=== PATIENT | female | born 1970 | race Caucasian/White ===

== ENCOUNTER 2018-03-31 15:08 | Observation (INO) ==
[2018-03-31] MEDS ORDERED: *HR* FentaNYL (PF) 100 MCG/2 ML VIAL IVP ONE ×3 (15:31→22:25)
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
[2018-03-31 16:13] LABS: Basophils % 0.2 %; Eosinophils # 0.3 K/mcL (0.0-0.6); Eosinophils % 3.4 %; Hematocrit 39.2 % (35.3-44.9); Hemoglobin 12.1 g/dL (11.5-15.4); Immature Granulocytes % 0.2 % (0-4); Lymphocytes # 1.5 K/mcL (0.6-4.6); Lymphocytes % 16.4 %; Mean Corpuscular HGB Conc 30.9 g/dL (31.6-35.5); Mean Corpuscular Hemoglobin 27.9 pg (28.0-33.3); Mean Corpuscular Volume 90.5 fL (83.0-100.0); Mean Platelet Volume 9.5 fL (9.4-12.4); Monocytes # 0.5 K/mcL (0.0-1.3); Monocytes % 5.3 %; Neutrophils # 6.8 K/mcL (1.6-8.9); Platelet Count 207 K/mcL (140-400); Red Blood Count 4.33 M/mcL (3.82-4.97); Segmented Neutrophils % 74.5 %
[2018-03-31 17:11] LABS: Acetaminophen < 10 mcg/mL (10-20); BUN/Creatinine Ratio 20 (6-26); Blood Urea Nitrogen 24 mg/dL (6-20); Calcium 8.6 mg/dL (8.6-10.3); Carbon Dioxide 19 mEq/L (23-29); Chloride 105 mEq/L (98-107); Ethanol < 10 mg/dL (Less than 10); Glucose 401 mg/dL (70-105); Osmolality,Calculated 295 (280-300); Potassium 4.7 mEq/L (3.5-5.1); Salicylate < 2.5 mg/dL (15.0-30.0); Sodium 132 mEq/L (136-145); eGFR For African Americans 59 (> 60); eGFR For Non-African Americans 49 (> 60)
[2018-03-31] MEDS ORDERED: Azithromycin 250 MG TABLET PO ONE (18:06)
[2018-03-31] MEDS ORDERED: cefTRIAXone 250 MG VIAL IM ONE (18:06)
[2018-03-31] MEDS ORDERED: metroNIDAZOLE 500 MG TABLET PO ONE (18:06)
[2018-03-31] MEDS ORDERED: Ondansetron 4 MG/2 ML VIAL IVP ONE (18:06)
[2018-03-31 18:50] LABS: Bilirubin,Urine Negative (Negative); Blood,Urine Small (Negative); Clarity,Urine Cloudy (Clear); Color,Urine Yellow (Yellow); Glucose,Urine (UA) >=1000 mg/dL (Normal); Ketones,Urine Negative (Negative); Leukocyte Esterase,Urine Moderate (Negative); Nitrite,Urine Negative (Negative); PH,Urine 5.5 pH Units (5.0-8.0); Protein,Urine Negative (Neg-Trace); Specific Gravity,Urine 1.027 (1.010-1.025); Urobilinogen,Urine Normal (Normal)
[2018-03-31 18:53] LABS: Bacteria,Urine Few per hpf (None-Few); Hyaline Casts,Urine None Seen per lpf (None-Few); Squamous Epithelial Cell,Urine Many per lpf (None-Few); WBC,Urine TNTC per hpf (0-3)
[2018-03-31] MEDS ORDERED: cephALEXin 250 MG CAPSULE PO ONE (19:10)
[2018-03-31 19:17] LABS: Amphetamine Screen,Urine Negative ng/mL (Cutoff=1000); Barbiturate Screen,Urine Negative ng/mL (Cutoff=200); Benzodiazepines Screen,Urine Positive ng/mL (Cutoff=200); Cannabinoid Screen,Urine Negative ng/mL (Cutoff = 50); Cocaine Screen,Urine Negative ng/mL (Cutoff= 300); Opiate Screen,Urine Positive ng/mL (Cutoff=300); Phencyclidine Screen,Urine Negative ng/mL (Cutoff=25)
[2018-03-31] MEDS ORDERED: Isovue-370 500 ML INFUS..BTL IV ONE (19:41)
[2018-03-31] MEDS ORDERED: Naloxone 0.4 MG/ML INJ IVP PRN (23:19)
[2018-03-31] MEDS ORDERED: Dextrose Gel 15 GM/37.5 ML TUBE PO PRN ×2 (23:20)
[2018-03-31] MEDS ORDERED: *HR* Dextrose 50 % in Water (Syg) 50 ML SYRINGE IVP PRN (23:20)
[2018-03-31] MEDS ORDERED: D5% in Water 1,000 ML IVC PRN (23:20)
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
[2018-04-01] MEDS: OXYCODONE Oral CONC 10 MG/0.5 ML ORAL.SYG SL PRN ×5 (01:14→20:56)
[2018-04-01] MEDS: 0.9 % Sodium Chloride 1,000 ML IVC SCH ×2 (01:14→21:23)
[2018-04-01] MEDS: Insulin LISPRO 300 UNITS/3 ML VIAL SQ SCH ×4 (01:52→14:07)
[2018-04-01 07:29] LABS: BUN/Creatinine Ratio 21 (6-26); Blood Urea Nitrogen 23 mg/dL (6-20); Calcium 9.4 mg/dL (8.6-10.3); Carbon Dioxide 21 mEq/L (23-29); Chloride 104 mEq/L (98-107); Glucose 155 mg/dL (70-105); Osmolality,Calculated 287 (280-300); Potassium 3.8 mEq/L (3.5-5.1); Sodium 135 mEq/L (136-145); eGFR For African Americans > 60 (> 60); eGFR For Non-African Americans 52 (> 60)
[2018-04-01 07:47] LABS: Basophils % 0.4 %; Eosinophils # 0.4 K/mcL (0.0-0.6); Eosinophils % 5.5 %; Hematocrit 33.3 % (35.3-44.9); Hemoglobin 10.8 g/dL (11.5-15.4); Immature Granulocytes % 0.4 % (0-4); Lymphocytes # 2.2 K/mcL (0.6-4.6); Mean Corpuscular HGB Conc 32.4 g/dL (31.6-35.5); Mean Corpuscular Hemoglobin 28.4 pg (28.0-33.3); Mean Corpuscular Volume 87.6 fL (83.0-100.0); Mean Platelet Volume 9.2 fL (9.4-12.4); Monocytes # 0.4 K/mcL (0.0-1.3); Monocytes % 5.5 %; Neutrophils # 4.6 K/mcL (1.6-8.9); Platelet Count 245 K/mcL (140-400); Red Cell Distribution Width 13.9 % (11.5-14.5); Segmented Neutrophils % 60.2 %
[2018-04-01 08:25] LABS: Estimated Average Glucose 321 mg/dl; Hemoglobin A1C 12.8 %
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
[2018-04-01] MEDS: ALPRAZolam 1 MG TABLET PO SCH ×3 (10:14→20:55)
[2018-04-01] MEDS: cefTRIAXone 1,000 MG in Water for inj. (sterile) 20 ML 10 ML IVP SCH (10:14)
[2018-04-01] MEDS: Ketorolac 15 MG/ML VIAL IVP PRN ×2 (14:04→23:22)
[2018-04-01] MEDS ORDERED: Insulin LISPRO 300 UNITS/3 ML VIAL SQ SCH ×2 (18:00→23:00)
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
[2018-04-01] MEDS: Gabapentin 400 MG CAPSULE PO SCH (20:55)
[2018-04-01] MEDS: Insulin DETEMIR 100 UNIT/ML X5UNITS SQ SCH (23:30)
[2018-04-02] MEDS: OXYCODONE Oral CONC 10 MG/0.5 ML ORAL.SYG SL PRN ×5 (02:07→21:53)
[2018-04-02] MEDS: Insulin LISPRO 300 UNITS/3 ML VIAL SQ SCH ×5 (04:00→23:11)
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
[2018-04-02] MEDS ORDERED: Insulin LISPRO 300 UNITS/3 ML VIAL SQ SCH (07:30)
[2018-04-02] MEDS: ALPRAZolam 1 MG TABLET PO SCH ×3 (08:10→21:52)
[2018-04-02] MEDS: cefTRIAXone 1,000 MG in Water for inj. (sterile) 20 ML 10 ML IVP SCH (08:10)
[2018-04-02] MEDS: Gabapentin 400 MG CAPSULE PO SCH ×3 (08:10→21:52)
--- NOTE | 2018-04-02 11:20 | Event Note ---
Date of Encounter: 04/02/18 Time of Encounter: 11:19 Contrast noted in large colon on repeat AAS. Noted regular diet per primary team. No acute surgical intervention indicated. Surgery will sign off at this time. Thank you for allowing us to participate Ms. Ndiaye krysta. Please reconsult for further questions or needs.
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
[2018-04-02] MEDS: Insulin DETEMIR 100 UNIT/ML X5UNITS SQ SCH (21:52)
[2018-04-03] MEDS: OXYCODONE Oral CONC 10 MG/0.5 ML ORAL.SYG SL PRN ×3 (03:39→19:28)
[2018-04-03 03:52] LABS: Hemoglobin 8.5 g/dL (11.5-15.4); Mean Corpuscular HGB Conc 32.7 g/dL (31.6-35.5); Mean Corpuscular Hemoglobin 28.5 pg (28.0-33.3); Mean Corpuscular Volume 87.2 fL (83.0-100.0); Platelet Count 195 K/mcL (140-400); Red Blood Count 2.98 M/mcL (3.82-4.97); Red Cell Distribution Width 13.6 % (11.5-14.5)
[2018-04-03 04:12] LABS: BUN/Creatinine Ratio 16 (6-26); Blood Urea Nitrogen 16 mg/dL (6-20); Calcium 8.6 mg/dL (8.6-10.3); Carbon Dioxide 24 mEq/L (23-29); Chloride 105 mEq/L (98-107); Glucose 258 mg/dL (70-105); Magnesium 1.7 mg/dL (1.6-2.6); Osmolality,Calculated 294 (280-300); Sodium 137 mEq/L (136-145); eGFR For African Americans > 60 (> 60); eGFR For Non-African Americans > 60 (> 60)
[2018-04-03] MEDS: Insulin LISPRO 300 UNITS/3 ML VIAL SQ SCH ×4 (08:03→20:46)
[2018-04-03] MEDS: ALPRAZolam 1 MG TABLET PO SCH ×3 (08:03→20:46)
[2018-04-03] MEDS: Gabapentin 400 MG CAPSULE PO SCH ×3 (08:04→20:46)
[2018-04-03] MEDS ORDERED: traMADol 50 MG TABLET PO PRN (08:46)
[2018-04-03] MEDS ORDERED: Sennosides 8.6 MG TABLET PO PRN (08:49)
[2018-04-03] MEDS ORDERED: OXYCODONE Oral CONC 10 MG/0.5 ML ORAL.SYG SL ONE (13:30)
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
[2018-04-03] MEDS ORDERED: Insulin DETEMIR 100 UNIT/ML X5UNITS SQ SCH (21:00)
[2018-04-03] MEDS ORDERED: *HR* FentaNYL (PF) 100 MCG/2 ML VIAL IVP ONE (22:39)
[2018-04-04 04:12] LABS: Hematocrit 25.8 % (35.3-44.9); Hemoglobin 8.6 g/dL (11.5-15.4)
[2018-04-04] MEDS: OXYCODONE Oral CONC 10 MG/0.5 ML ORAL.SYG SL PRN (06:41)
[2018-04-04] MEDS: Gabapentin 400 MG CAPSULE PO SCH ×2 (08:47→13:56)
[2018-04-04] MEDS: ALPRAZolam 1 MG TABLET PO SCH ×2 (08:48→13:56)
[2018-04-04] MEDS: Insulin LISPRO 300 UNITS/3 ML VIAL SQ SCH ×2 (08:49→11:41)
[2018-04-04] MEDS ORDERED: Lisinopril 20 MG TABLET PO SCH (09:00)
[2018-04-04] MEDS ORDERED: *HR* FentaNYL (PF) 100 MCG/2 ML VIAL IVP ONE ×2 (10:35→15:10)
[2018-04-04] MEDS ORDERED: Ondansetron 4 MG/2 ML VIAL IVP PRN (10:35)
[2018-04-04 14:14] VITALS: BP 169/101
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
== END 2018-04-04 17:29 | disposition home or self-care (01) ==
LOC: EMEROO 15:08 → 3ANU 15:08 → SUATTDRO 23:41 → 3ANU 04-01 00:22
PROVIDERS: ADMIT Internal Medicine; ATTEND Internal Medicine

== ENCOUNTER 2018-04-30 14:01 | Inpatient (IN) ==
[2018-04-30] MEDS ORDERED: Ipratropium/Albuterol Neb 3 ML IH ONE (14:04)
[2018-04-30] MEDS ORDERED: 0.9 % Sodium Chloride 1,000 ML IVC ONE (14:22)
--- NOTE | 2018-04-30 14:33 | Emergency Department Note ---
Disposition Clinical Impression: Numbness and tingling of left side of face Syncope Qualifiers: Syncope type: unspecified Qualified Code(s): R55 - Syncope and collapse Headache Qualifiers: Headache type: unspecified Headache chronicity pattern: unspecified pattern Intractability: not intractable Qualified Code(s): R51 - Headache Disposition: Admitted As Inpatient General Adult HPI - General Stated complaint: syncope Time Seen by Provider: 04/30/18 14:04 Source: patient, EMS Mode of arrival: EMS Limitations: no limitations Nursing Notes Reviewed: Yes Vital Signs Reviewed: Yes - History of Present Illness HPI Narrative: Patient presents via EMS for multiple episodes of syncope. She has had approximately 7 episodes of syncope since midnight. Patient had concern for questionable arousal via EMS. They state that she did start to wake up with ammonia capsule. She awoken for me to voice. She states that she has been having these symptoms along with associated left-sided headache. The patient does not have any neuro deficits on my evaluation. She states that she was here and they were unable to find out what was going on. They have not looked into seizure type episode in the past. At this point her symptoms do not sound seizure-like that she has not had any tongue biting or loss of urinary continence. The patient had reported had some jerking of her extremities as well as her eyes. Patient will undergo head CT as well as further cardiac workup for evaluation of possible etiology. - Related Data Home Medications Medication Instructions Recorded Confirmed Gabapentin [Neurontin] 800 mg PO TID 09/25/16 04/09/18 Insulin LISPRO [HumaLOG] 0 units SQ TIDAC PRN 09/25/16 04/09/18 Insulin Glargine [Lantus] 35 unit SQ QAM 02/20/18 04/09/18 Lisinopril [Zestril] 10 mg PO DAILY 02/20/18 04/09/18 ALPRAZolam [Xanax 1 MG Tablet] 1 mg PO TID PRN 03/30/18 04/09/18 Omeprazole [PriLOSEC] 20 mg PO BIDAC 03/30/18 04/09/18 Promethazine [Phenergan] 25 mg PO Q6HR PRN 03/30/18 04/09/18 Pravastatin Sodium [Pravachol] 10 mg PO HS 04/01/18 04/09/18 Bethanechol [Urecholine] 25 mg PO QID 04/09/18 04/09/18 Previous Rx's Medication Instructions Recorded Ondansetron Oral Soln [Zofran Oral 2 mg PO Q6HR PRN 10 Days #40 04/04/18 Soln] solution OxyCODONE Immed Rel [Roxicodone 5 5 mg PO Q4HR PRN 5 Days #20 tablet 04/04/18 MG] Allergies Allergy/AdvReac Type Severity Reaction Status Date / Time butorphanol [From Stadol] Allergy Difficulty Verified 03/30/18 20:55 Breathing diflunisal [From Dolobid] Allergy Itching Verified 03/30/18 20:55 nalbuphine [From Nubain] Allergy Difficulty Verified 03/30/18 20:55 Breathing Sulfa (Sulfonamide Allergy Rash Verified 03/30/18 20:55 Antibiotics) Review of Systems: CONSTITUTIONAL: No weight loss, fever, chills, weakness or fatigue. HEENT: Eyes: Eye pain which she associates with the headache and describes as behind the eye and sharp. Ears, Nose, Throat: No hearing loss, difficulty talking or unable to swallow. SKIN: No rash or itching. CARDIOVASCULAR: No chest pain, chest pressure or chest discomfort. No palpitations or edema. RESPIRATORY: No shortness of breath, cough or sputum. GASTROINTESTINAL: No anorexia, nausea, vomiting or diarrhea. No abdominal pain or blood. GENITOURINARY: No burning on urination or hematuria. NEUROLOGICAL: Headache and syncope No dizziness, paralysis, ataxia, numbness or tingling in the extremities. No change in bowel or bladder control. MUSCULOSKELETAL: Back pain described as chronic Past Medical History - Past Medical History Medical history: Reports: arthritis, diabetes, GERD, kidney stones, osteoporosis , peripheral artery disease, TIA, other Surgical history: Reports: appendectomy, cholecystectomy, hysterectomy, orthopedic, other Psychiatric history: Reports: PTSD SAUSAGE MEAT TRIMMER history: Reports: no SAUSAGE MEAT TRIMMER history - Social History Smoking Status: Never smoker Smokeless Tobacco Status: No Alcohol use: Reports: none Drug use: Reports: none Physical Exam General: Well appearing, nontoxic, no acute distress Head: Normocephalic Atraumatic Eyes: PERRL, EOMI ENT: Airway patent, no stridor Neck: supple, no meningismus Chest: Lungs clear to auscultation bilateral Cardiac: Regular rate and rhythm, no murmurs, rubs or gallops Abdomen: soft, nontender, nondistended; no guarding, rebound, or tenderness to percussion Musculoskeletal: Calves symmetric, nontender, no palpable cord Skin: No rash, normal skin tone Neuro: Alert and Oriented to person, place, and time; No focal deficit, Course - Reevaluation(s) Reevaluation #1: D-dimer slightly elevated. Patient will undergo CTA of chest. Patient was reevaluated and is complaining of worsening left-sided headache. She states the pain is behind her eye. Complaining of pain worsening with pressure. Intraocular pressures were performed and were 16 in both eyes. The patient will have an ESR added to her blood work to further evaluate for possible temporal arteritis as her headache is left-sided as tenderness to touch in the temporal area. The patient's will be given a migraine cocktail as her head CT is negative. On reevaluation of the patient's neuro exam she does have some left-sided facial numbness to the lower face. Does not involve the upper face. There is no other cranial nerve involvement. She describes it as a numbness and not a hypersensitivity Tish likely trigeminal neuralgia. Patient was placed on high flow nasal cannula without any improvements in the emergency department. She is asked for multiple narcotic medications including fentanyl by name. At this point her medical records have been evaluated and she was seen for syncope. She signed out AMA. His point she is willing to stay and understands that she needs to stay for complete workup. Patient's back pain is related to right paraspinal lumbar muscles. There is no midline tenderness. There is no tenderness to the pelvis. Likely musculoskeletal related in nature. Vital Signs Temperature 99.5 F 04/30/18 14:28 Pulse Rate 108 04/30/18 14:28 Respiratory Rate 16 04/30/18 14:28 Blood Pressure 160/77 04/30/18 14:28 O2 Sat by Pulse Oximetry 97 04/30/18 14:28 Temperature 99.5 F 04/30/18 14:28 Pulse Rate 108 04/30/18 14:28 Respiratory Rate 16 04/30/18 14:28 Blood Pressure 160/77 04/30/18 14:28 O2 Sat by Pulse Oximetry 97 04/30/18 14:33 Oxygen Delivery Oxygen Delivery Room Air Medical Decision Making - Lab Data Result diagrams: 04/30/18 14:42 04/30/18 14:04 Lab Results 04/30/18 04/30/18 04/30/18 Range/Units 14:04 14:42 14:42 WBC 8.3 (4.3-11.1) K/mcL RBC 3.44 L (3.82-4.97) M/mcL Hgb 9.8 L (11.5-15.4) g/dL Hct 29.4 L (35.3-44.9) % MCV 85.5 (83.0-100.0) fL MCH 28.5 (28.0-33.3) pg MCHC 33.3 (31.6-35.5) g/dL RDW 13.2 (11.5-14.5) % Plt Count 222 (140-400) K/mcL MPV 8.8 L (9.4-12.4) fL Immature Gran % 0.5 (0-4) % Seg Neutrophils % 60.5 % Lymphocytes % 20.7 % Monocytes % 7.0 % Eosinophils % 10.8 % Basophils % 0.5 % Neutrophils # 5.0 (1.6-8.9) K/mcL Lymphocytes # 1.7 (0.6-4.6) K/mcL Monocytes # 0.6 (0.0-1.3) K/mcL Eosinophils # 0.9 H (0.0-0.6) K/mcL Basophils # 0.0 (0.0-0.2) K/mcL ESR (0-15) mm/hr D-Dimer 1392 H (0-500) ng/mLFEU Sodium 128 L (136-145) mEq/L Potassium 4.4 (3.5-5.1) mEq/L Chloride 95 L (98-107) mEq/L Carbon Dioxide 28 (23-29) mEq/L BUN 11 (6-20) mg/dL Creatinine 0.92 (0.60-1.20) mg/dL Est GFR ( Amer) > 60 (> 60) Est GFR (Non-Af Amer) > 60 (> 60) BUN/Creatinine Ratio 12 (6-26) Glucose 189 H (70-105) mg/dL Calculated Osmolality 270 L (280-300) Calcium 9.1 (8.6-10.3) mg/dL Magnesium 1.8 (1.6-2.6) mg/dL Troponin I < 0.03 (< 0.04) ng/mL TSH 0.648 (0.340-5.600) mcIU/mL 04/30/18 Range/Units 14:42 WBC (4.3-11.1) K/mcL RBC (3.82-4.97) M/mcL Hgb (11.5-15.4) g/dL Hct (35.3-44.9) % MCV (83.0-100.0) fL MCH (28.0-33.3) pg MCHC (31.6-35.5) g/dL RDW (11.5-14.5) % Plt Count (140-400) K/mcL MPV (9.4-12.4) fL Immature Gran % (0-4) % Seg Neutrophils % % Lymphocytes % % Monocytes % % Eosinophils % % Basophils % % Neutrophils # (1.6-8.9) K/mcL Lymphocytes # (0.6-4.6) K/mcL Monocytes # (0.0-1.3) K/mcL Eosinophils # (0.0-0.6) K/mcL Basophils # (0.0-0.2) K/mcL ESR 34 H (0-15) mm/hr D-Dimer (0-500) ng/mLFEU Sodium (136-145) mEq/L Potassium (3.5-5.1) mEq/L Chloride (98-107) mEq/L Carbon Dioxide (23-29) mEq/L BUN (6-20) mg/dL Creatinine (0.60-1.20) mg/dL Est GFR ( Amer) (> 60) Est GFR (Non-Af Amer) (> 60) BUN/Creatinine Ratio (6-26) Glucose (70-105) mg/dL Calculated Osmolality (280-300) Calcium (8.6-10.3) mg/dL Magnesium (1.6-2.6) mg/dL Troponin I (< 0.04) ng/mL TSH (0.340-5.600) mcIU/mL
[2018-04-30 15:14] LABS: Basophils % 0.5 %; Eosinophils # 0.9 K/mcL (0.0-0.6); Eosinophils % 10.8 %; Hematocrit 29.4 % (35.3-44.9); Hemoglobin 9.8 g/dL (11.5-15.4); Immature Granulocytes % 0.5 % (0-4); Lymphocytes # 1.7 K/mcL (0.6-4.6); Lymphocytes % 20.7 %; Mean Corpuscular HGB Conc 33.3 g/dL (31.6-35.5); Mean Corpuscular Hemoglobin 28.5 pg (28.0-33.3); Mean Corpuscular Volume 85.5 fL (83.0-100.0); Mean Platelet Volume 8.8 fL (9.4-12.4); Monocytes # 0.6 K/mcL (0.0-1.3); Platelet Count 222 K/mcL (140-400); Red Blood Count 3.44 M/mcL (3.82-4.97); Red Cell Distribution Width 13.2 % (11.5-14.5); Segmented Neutrophils % 60.5 %
[2018-04-30] MEDS ORDERED: Ondansetron 4 MG/2 ML VIAL IVP ONE (15:16)
[2018-04-30] MEDS ORDERED: *HR* FentaNYL (PF) 100 MCG/2 ML VIAL IVP ONE (15:16)
[2018-04-30 15:41] LABS: Troponin I < 0.03 ng/mL (< 0.04)
[2018-04-30 15:42] LABS: BUN/Creatinine Ratio 12 (6-26); Blood Urea Nitrogen 11 mg/dL (6-20); Calcium 9.1 mg/dL (8.6-10.3); Carbon Dioxide 28 mEq/L (23-29); Chloride 95 mEq/L (98-107); Glucose 189 mg/dL (70-105); Magnesium 1.8 mg/dL (1.6-2.6); Osmolality,Calculated 270 (280-300); Potassium 4.4 mEq/L (3.5-5.1); Sodium 128 mEq/L (136-145); eGFR For Non-African Americans > 60 (> 60)
[2018-04-30] MEDS ORDERED: Isovue-370 500 ML INFUS..BTL IV ONE (15:43)
[2018-04-30 15:54] LABS: Thyroid Stimulating Hormone 0.648 mcIU/mL (0.340-5.600)
[2018-04-30] MEDS ORDERED: Metoclopramide 10 MG/2 ML VIAL IVP STA (17:05)
[2018-04-30] MEDS ORDERED: *HR* OxyCODONE Immed Rel 5 MG TABLET PO STA (17:05)
--- NOTE | 2018-04-30 18:05 | Internal Med History&Physical ---
Date of Encounter: 04/30/18 Time of Encounter: 17:55 Internal Medicine - H&P: HPI Chief complaint: syncope Admitted From: Home Plans for Post Hospital Care: Home History of present illness: Ms. Ndiaye is a 47 year old female past medical history of diabetes hypertension hyperlipidemia presented to the emergency department after experiencing several episodes of syncope since last night. Patient stated that she had total of 7 times pass out since last midnight. Last night she woke up and went to bathroom and passed out, when she woke up she found the TV was on. After that she had total of 5 times pass out w/o witness. At noon when she was in her friend's car, she started to have left-sided facial and eye pain and lightening from left eye, then she passed out with 4 extremity jerking movement , lasted for 15 minutes. after that she was confused. Patient states that over last month and she has been on and off passing out, she had one time loss of urine control , one time loss of bowel control and she had the no tongue bite, or other major injury. In the emergency room, vitals are stable, d-dimer was elevated, CT angio was negative for PE. a head CT was negative for acute process, chronic C7 compression fracture. Patient was admitted to 2 weeks ago for syncopal episodes. cardiology was consulted and had a normal echocardiogram. She left AMA on 04/11/2018. Patient is going to be admitted for seizure workup will consult neurology Past Med Surg Social Fam HX - Past Medical History Medical history: arthritis, diabetes, GERD, kidney stones, osteoporosis, peripheral artery disease, TIA, other Additional medical history: OSTEOPOROSIS Psychiatric history: PTSD - Past Surgical History Surgical History: appendectomy, cholecystectomy, hysterectomy, orthopedic, other Additional surgical history: LT hip replacement,RT foot fusion,LT wrist, bowel adhesion, bladder stents - Social History Smoking Status: Never smoker Smokeless Tobacco Status: No Alcohol use: none Drug use: none - Family History Mother Living Status: Still Living Hx Family Cardiac Disorders: No Hx Family Respiratory Disorders: Yes (Father wore oxygen) Hx Family Cancer: No Hx Family GI Disorders: No Hx Family Endocrine Disorder: Yes (Thyroid disease and type 2 diabetes) Hx Family Neuromuscular Disorders: No Hx Family Neurologic Disorders: No Hx Family HEENT Disorders: No Hx Family Autoimmune Disorders: No Father Hx Family Respiratory Disorders: Yes (Wore oxygen) Internal Medicine - H&P: Meds Gabapentin [Neurontin] 800 mg PO TID 09/25/16 [History] Insulin LISPRO [HumaLOG] 0 units SQ TIDAC PRN 09/25/16 [History] Insulin Glargine [Lantus] 35 unit SQ QAM 02/20/18 [History] Lisinopril [Zestril] 10 mg PO DAILY 02/20/18 [History] Omeprazole [PriLOSEC] 20 mg PO BIDAC 03/30/18 [History] Promethazine [Phenergan] 25 mg PO Q6HR PRN 03/30/18 [History] Pravastatin Sodium [Pravachol] 10 mg PO HS 04/01/18 [History] Bethanechol [Urecholine] 25 mg PO QID 04/09/18 [History] 3 Allergy/AdvReac Type Severity Reaction Status Date / Time butorphanol [From Stadol] Allergy Difficulty Verified 03/30/18 20:55 Breathing diflunisal [From Dolobid] Allergy Itching Verified 03/30/18 20:55 nalbuphine [From Nubain] Allergy Difficulty Verified 03/30/18 20:55 Breathing Sulfa (Sulfonamide Allergy Rash Verified 03/30/18 20:55 Antibiotics) All Systems PM: A 10-system review of systems was performed and is negative for pertinent findings except as documented above in the HPI. - Constitutional Vitals: Temp Pulse Resp BP Pulse Ox 99.5 F 108 16 160/77 97 04/30/18 14:28 04/30/18 14:28 04/30/18 14:28 04/30/18 14:28 04/30/18 14:33 General appearance: Present: cooperative, A&O X 3, pleasant, answers questions appropriately Exam: CONSTITUTIONAL: patient appears as an age appropriate female in no acute distress. EYES Clear sclerae, bilateral pupils are equal, reactive to light. EMOI. RESPIRATORY: No accessory muscle use, bilateral clear to auscultation, no wheezing, no crackles/rales. CARDIOVASCULAR: Regular heart rate, normal S1 and S2, no murmurs GASTROINTESTINAL: bowel sounds present, soft, no tenderness. MUSCULOSKELETAL: Joints in normal range of motion, no clubbing, no edema, no cyanosis. Bilateral peripheral pulses 2+. NEUROLOGIC: CN II to XII are grossly intact, no focal neurological deficit. Internal Med - H&P Results - Labs CBC & Chem 7: 04/30/18 14:42 04/30/18 14:04 - Assessment and plan (1) Seizure Current Visit: Yes Status: Acute Assessment and plan: patient is likley haveing seizure based on the friend's witness, will order MRI brain, consult Neurology, EEG seizure precaution (2) Diabetes mellitus with neuropathy Current Visit: Yes Status: Chronic Assessment and plan: continue home insulin, check A1C, add SSI Qualifiers: Diabetes mellitus type: type 2 Diabetes mellitus extermination inspector insulin use: with extermination inspector use Qualified Code(s): E11.40 - Type 2 diabetes mellitus with diabetic neuropathy, unspecified; Z79.4 - extermination inspector (current) use of insulin (3) HTN (hypertension) Current Visit: Yes Status: Chronic Assessment and plan: contineu lisinopril Qualifiers: Hypertension type: essential hypertension Qualified Code(s): I10 - Essential (primary) hypertension (4) Hyperlipidemia Current Visit: Yes Status: Chronic Qualifiers: Hyperlipidemia type: pure hypercholesterolemia Qualified Code(s): E78.00 - Pure hypercholesterolemia, unspecified; E78.0 - Pure hypercholesterolemia (5) Hyponatremia Current Visit: Yes Status: Acute Assessment and plan: will give IVF, check urine Osmo (6) Elevated d-dimer Current Visit: Yes Status: Acute Assessment and plan: CT lorena was negative for PE, will check duplex to r/o DVT (7) 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
[2018-04-30] MEDS ORDERED: Gadolinium Contrast Agent (WT Based) IV PRN (18:11)
[2018-04-30] MEDS ORDERED: Naloxone 0.4 MG/ML INJ IVP PRN (18:17)
[2018-04-30] MEDS: Ringers Solution, Lactated 1,000 ML IVC SCH (20:00)
[2018-04-30] MEDS: Gabapentin 400 MG CAPSULE PO SCH (20:01)
[2018-04-30] MEDS: Insulin LISPRO 300 UNITS/3 ML VIAL SQ SCH (20:01)
[2018-04-30] MEDS: ALPRAZolam 1 MG TABLET PO PRN (23:28)
[2018-04-30] MEDS: traMADol 50 MG TABLET PO PRN (23:47)
[2018-05-01 04:27] LABS: Basophils % 0.3 %; Eosinophils # 0.7 K/mcL (0.0-0.6); Eosinophils % 11.4 %; Hematocrit 26.7 % (35.3-44.9); Hemoglobin 8.8 g/dL (11.5-15.4); Immature Granulocytes % 0.3 % (0-4); Lymphocytes # 1.6 K/mcL (0.6-4.6); Lymphocytes % 26.9 %; Mean Platelet Volume 9.1 fL (9.4-12.4); Monocytes # 0.4 K/mcL (0.0-1.3); Neutrophils # 3.3 K/mcL (1.6-8.9); Platelet Count 208 K/mcL (140-400); Red Blood Count 3.14 M/mcL (3.82-4.97); Red Cell Distribution Width 13.4 % (11.5-14.5); Segmented Neutrophils % 55.1 %
[2018-05-01] MEDS: Ringers Solution, Lactated 1,000 ML IVC SCH (05:48)
[2018-05-01 06:53] LABS: Estimated Average Glucose 275 mg/dl; Hemoglobin A1C 11.2 %
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
[2018-05-01] MEDS: ALPRAZolam 1 MG TABLET PO PRN ×3 (09:16→22:10)
[2018-05-01] MEDS: Gabapentin 400 MG CAPSULE PO SCH ×3 (09:16→22:10)
[2018-05-01] MEDS: traMADol 50 MG TABLET PO PRN ×3 (09:17→22:10)
[2018-05-01] MEDS: Insulin LISPRO 300 UNITS/3 ML VIAL SQ SCH ×4 (09:22→21:32)
[2018-05-01] MEDS: Insulin DETEMIR 100 UNIT/ML X5UNITS SQ SCH (09:23)
[2018-05-01] MEDS ORDERED: *HR* Dextrose 50 % in Water (Syg) 50 ML SYRINGE ONE (11:05)
[2018-05-01] MEDS ORDERED: *HR* Dextrose 50 % in Water (Syg) 50 ML SYRINGE IVP ONE (11:08)
--- NOTE | 2018-05-01 14:56 | Internal Med Progress Note ---
Hospitalist Progress Note - Encounter Date of Encounter: 05/01/18 Time of Encounter: 14:53 - Subjective Interval History: Patient seen and examined at bedside today, no acute changes overnight. Continuing to report dizziness, left-sided facial and left thigh pain. Denies any syncopal or seizure like activity. Also complaining of generalized abdominal pain. - Exam Vitals: Temp Pulse Resp BP Pulse Ox 97.6 F 98 15 145/88 99 05/01/18 11:12 05/01/18 11:12 05/01/18 11:12 05/01/18 11:12 05/01/18 11:12 Exam: PHYSICAL EXAMINATION: GENERAL: The patient is a well-developed, well-nourished female in no apparent distress. She is alert and oriented x3. HEENT: Head is normocephalic and atraumatic. Extraocular muscles are intact. Pupils are equal, round, and reactive to light and accommodation. Nares appeared normal. Mouth is well hydrated and without lesions. Mucous membranes are moist. NECK: Supple. No carotid bruits. No lymphadenopathy or thyromegaly. LUNGS: Clear to auscultation. HEART: Regular rate and rhythm without murmur. ABDOMEN: Soft, and nondistended. Positive bowel sounds. No hepatosplenomegaly was noted. tenderness noted to right lower quadrant without guarding or rebound. Abdomen is not rigid EXTREMITIES: Without any cyanosis, clubbing, rash, lesions or edema. NEUROLOGIC: Cranial nerves II through XII are grossly intact. PSYCHIATRIC: Anxious appearing, but denies suicidal or homicidal ideations. - Assessment and Plan (1) Syncope Current Visit: Yes Status: Acute Assessment and Plan: Patient reports she is advised syncopal events in the last 48 hours. History of syncope. Was recently admitted in March 2018 evaluated for syncope with that time she signed out AGAINST MEDICAL ADVICE. Cause of syncope unclear, however is suspicious she may have postural hypotension as she is reporting that the syncopal events or exacerbated with change of position. EKG sinus tachycardia rate of 104, per my review no ST-T wave changes concerning for ischemia. Troponins less than 0.033. MRI of brain and CT of head obtained and found to be negative for acute intracranial abnormality. Proceed with further evaluation Echocardiogram 04/09/18 with LVEF 55%, mild LV diastolic dysfunction, normal RV structure and function, mild-moderate TR, no PHTN, obtain orthostatic vitals twice a day, bilateral carotid Doppler ultrasounds preliminary with no occlusive plaque noted and appear to be within normal limits. Obtain EEG to evaluate for seizure as cause of syncope. Neurology following (2) Elevated d-dimer Current Visit: Yes Status: Acute Assessment and Plan: Etiology unclear, CTA negative for PE, no extremity swelling or pain (3) Hyponatremia Current Visit: Yes Status: Acute Assessment and Plan: Serum sodium on admission 128, IV fluid given, urine osmolality 171. Recheck serum sodium. Currently asymptomatic, continue to monitor. If serum sodium remains low I will infuse 1 L 0.9% normal saline and recheck urine sodium (4) Seizure Current Visit: Yes Status: Acute Assessment and Plan: Patient reporting syncopal like episodes as well as epileptic type seizure activity Unclear whether or not true seizure activity however, she does report some tonic /clonic activity as well as loss of bowel and urinary incontinence However, her exam findings and history has been inconsistent among myself and other providers and history seems to be inconsistent with epileptic seizures Consider pseudoseizure- Head CT negative for acute intracranial process MRI of brain obtained negative for acute process EEG pending completion Nephrology following in consultation-appreciate recommendations; recommends that if workup remains abnormal patient would benefit from psych consult for evaluation of pseudoseizures (5) Diabetes mellitus with neuropathy Current Visit: Yes Status: Chronic Assessment and Plan: History of diabetes, continue current sliding scale insulin coverage. Adjust as necessary (6) HTN (hypertension) Current Visit: Yes Status: Chronic Assessment and Plan: History of hypertension, BP controlled at this time. Continue lisinopril, continue monitor. Adjust medications when necessary or at adjunct therapy when necessary (7) Hyperlipidemia Current Visit: Yes Status: Chronic Assessment and Plan: Continue Zocor DVT Prophylaxis: Subcutaneous heparin - Time Spent with Patient Total time spent is greater than 50% in coordination of care (as documented) at patient's floor/unit and/or counseling patient: less than 15 minutes Plan of Care Discussed with: patient Internal Medicine: Result - Labs CBC & Chem 7: 05/01/18 04:00 04/30/18 14:04 Labs: Short CBC 05/01/18 Range/Units 04:00 WBC 6.0 (4.3-11.1) K/mcL Hgb 8.8 L (11.5-15.4) g/dL Hct 26.7 L (35.3-44.9) % Plt Count 208 (140-400) K/mcL Neutrophils # 3.3 (1.6-8.9) K/mcL Cardiac Enzymes 04/30/18 05/01/18 05/01/18 Range/Units 20:30 04:00 10:20 Troponin I < 0.03 < 0.03 < 0.03 (< 0.04) ng/mL - ABG Interpretation ABG results: PT/INR, D-dimer D-Dimer 1392 ng/mLFEU (0-500) H 04/30/18 14:42 - Impressions Impressions Brain MRI 05/01/18 18:11 IMPRESSION: MRI of the brain with seizure protocol demonstrating no acute abnormality. No acute infarct. D/ / Stephan Olsen MD / Stephan Olsen MD Interpreting Provider: Stephan Olsen MD Consult Discharge Plan - Plan Referrals: Aggie Gonzalez [Primary Care Provider] - (1) Syncope Qualifiers: Syncope type: unspecified Qualified Code(s): R55 - Syncope and collapse (5) Diabetes mellitus with neuropathy Qualifiers: Diabetes mellitus type: type 2 Diabetes mellitus sample cutter insulin use: with sample cutter use Qualified Code(s): E11.40 - Type 2 diabetes mellitus with diabetic neuropathy, unspecified; Z79.4 - correction (current) use of insulin (6) HTN (hypertension) Qualifiers: Hypertension type: essential hypertension Qualified Code(s): I10 - Essential (primary) hypertension (7) Hyperlipidemia Qualifiers: Hyperlipidemia type: pure hypercholesterolemia Qualified Code(s): E78.00 - Pure hypercholesterolemia, unspecified; E78.0 - Pure hypercholesterolemia
[2018-05-01] MEDS: *HR* Heparin 5,000 UNIT/ML VIAL SQ SCH (16:12)
--- NOTE | 2018-05-01 16:47 | Electrocardiograph Report ---
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
--- NOTE | 2018-05-01 19:13 | EEG/EMG/Oth Biometrics Report ---
EEG Procedure Report Date of procedure: 05/01/18 EEG Procedure: Routine EEG Procedure Note: This is a report of a 21 channel bipolar and referential montage EEG. Posterior dominant rhythm consisted of 10 Hz low voltage alpha frequency. This rhythm does not react to eye opening. Superimposed beta frequencies are identified in all leads bilaterally. There is no sleep architecture identified during the recording. Photic stimulation is performed and produces a symmetric driving response. The EKG rhythm strip reveals normal sinus rhythm at 90 bpm. Impressions: This EEG recording is within normal limits. There is no evidence of epileptiform activity identified during the study. Comment: A normal EEG does not preclude a diagnosis of seizure or epilepsy. If the clinical suspicion for seizure activity is high, serial EEGs or perhaps a prolonged recording may increase the yield. Please correlate clinically.
[2018-05-02 03:54] LABS: Basophils % 0.4 %; Eosinophils # 0.5 K/mcL (0.0-0.6); Eosinophils % 7.1 %; Hematocrit 24.7 % (35.3-44.9); Hemoglobin 8.1 g/dL (11.5-15.4); Immature Granulocytes % 0.4 % (0-4); Lymphocytes # 1.8 K/mcL (0.6-4.6); Lymphocytes % 25.6 %; Mean Corpuscular HGB Conc 32.8 g/dL (31.6-35.5); Mean Corpuscular Hemoglobin 27.9 pg (28.0-33.3); Mean Corpuscular Volume 85.2 fL (83.0-100.0); Mean Platelet Volume 8.9 fL (9.4-12.4); Monocytes # 0.5 K/mcL (0.0-1.3); Monocytes % 6.5 %; Neutrophils # 4.1 K/mcL (1.6-8.9); Platelet Count 191 K/mcL (140-400); Red Cell Distribution Width 13.4 % (11.5-14.5)
[2018-05-02 04:31] LABS: BUN/Creatinine Ratio 15 (6-26); Blood Urea Nitrogen 15 mg/dL (6-20); Calcium 8.6 mg/dL (8.6-10.3); Carbon Dioxide 24 mEq/L (23-29); Chloride 100 mEq/L (98-107); Glucose 162 mg/dL (70-105); Osmolality,Calculated 278 (280-300); Potassium 4.3 mEq/L (3.5-5.1); Sodium 132 mEq/L (136-145); eGFR For Non-African Americans 58 (> 60)
[2018-05-02] MEDS: traMADol 50 MG TABLET PO PRN ×3 (05:00→21:04)
[2018-05-02] MEDS: *HR* Heparin 5,000 UNIT/ML VIAL SQ SCH ×2 (05:00→16:57)
[2018-05-02] MEDS: ALPRAZolam 1 MG TABLET PO PRN ×3 (05:00→21:04)
[2018-05-02] MEDS: Insulin DETEMIR 100 UNIT/ML X5UNITS SQ SCH (08:48)
[2018-05-02] MEDS: Insulin LISPRO 300 UNITS/3 ML VIAL SQ SCH ×4 (08:49→21:06)
[2018-05-02] MEDS: Gabapentin 400 MG CAPSULE PO SCH ×3 (11:11→21:04)
[2018-05-02] MEDS ORDERED: *HR* Dextrose 50 % in Water (Syg) 50 ML SYRINGE ONE (13:14)
[2018-05-02] MEDS ORDERED: *HR* LORazepam 2 MG/ML VIAL IVP ONE (13:26)
[2018-05-02] MEDS ORDERED: *HR* LORazepam 2 MG/ML VIAL ONE (13:30)
[2018-05-02] MEDS ORDERED: D5% in Water 1,000 ML IVC PRN (14:16)
[2018-05-02] MEDS ORDERED: *HR* Dextrose 50 % in Water (Syg) 50 ML SYRINGE IVP PRN (14:16)
[2018-05-02] MEDS ORDERED: Dextrose Gel 15 GM/37.5 ML TUBE PO PRN ×2 (14:16)
--- NOTE | 2018-05-02 14:27 | Internal Med Progress Note ---
Hospitalist Progress Note - Encounter Date of Encounter: 05/02/18 Time of Encounter: 13:30 - Subjective Interval History: Called to pts. room @ 13:15 while examining another pt. d/t psuedo-seizures. Pts. eyes were closed and legs were jerking. Would not respond to open her eyes or to tell us what was wrong. Sx lasted approx. 5 minutes. Pt. repeatedly asked to open her eyes which she finally did and began grabbing her right abdomen and crying out in pain. Stated that RLQ pain extended to her flank area. Ordered Ativan given. CT of the abdomen/pelvis ordered. Pt. currently has Tramadol ordered for pain d/t polypharmacy from multiple providers. 0.9 NS @ 80 mL/HR started d/t hyponatremia of 132. Will monitor sodium in a.m. labs. Pt. currently on telemetry. Neuro consult shows EEG within normal limits and no evidence of epileptiform activity identified during the study. However, normal EEG does not preclude a diagnosis of seizure or epilepsy. If the clinical suspicion for seizure activity is high serial EEGs or perhaps prolonged recording may increase the yield. Please correlate clinically. MRI of head/ brain with seizure protocol demonstrating no acute abnormality. No acute infarct. Discussed patient with Dr. Garcia of neurology who feels pseudoseizure activity may have psychiatric basis and recommends psychiatric consult. Psych consult ordered and discussed w/1A. Will continue to monitor closely. Falls/ safety precautions and up with assist. - Exam Vitals: Temp Pulse Resp BP Pulse Ox 97.8 F 101 16 151/93 98 05/02/18 11:13 05/02/18 11:13 05/02/18 11:13 05/02/18 11:13 05/02/18 11:13 Physical examination: General: Patient is a well-developed, well-nourished female exhibiting pseudoseizure activity with leg jerking. HEENT: Head normocephalic and atraumatic. Extraocular muscles intact. Pupils are equal, round, and reactive to light and accommodation following pseudoseizure. Ears appear normal. Mouth well hydrated without lesions. Mucous membranes moist. Neck: Supple. No carotid bruits. No lymphadenopathy or thyromegaly. Lungs: Clear on auscultation. Heart: RRR w/o murmur. Abdomen: Soft and non-distended. Active bowel sounds. No hepatomegaly. No splenomegaly. Guarding present in RLQ due to pain. Abdomen is not rigid. Extremities: No cyanosis, clubbing, rash, lesions, or edema. Neurologic: Cranial nerves II through XII grossly intact. Pseudoseizure activity on exam. Pt. wanting pain medication d/t abdominal pain. Will continue Tramadol. Psychiatric: Anxious and tearful. Denies suicidal or homicidal ideations. Will continue Ativan. - Assessment and Plan (1) Seizure Current Visit: Yes Status: Acute Assessment and Plan: Patient reporting syncopal like episodes as well as epileptic type seizure activity Unclear whether or not true seizure activity however, she does report some tonic /clonic activity as well as loss of bowel and urinary incontinence However, her exam findings and history has been inconsistent among myself and other providers and history seems to be inconsistent with epileptic seizures Consider pseudoseizure- Head CT negative for acute intracranial process MRI of brain shows no acute intracranial abnormality. EEG grossly normal Nephrology following in consultation-appreciate recommendations; recommends that if workup remains abnormal patient would benefit from psych consult for evaluation of pseudoseizures. Psych consult ordered and confirmed. (2) Syncope Current Visit: Yes Status: Acute Assessment and Plan: Patient reports she is advised syncopal events in the last 48 hours. History of syncope. Was recently admitted in March 2018 evaluated for syncope with that time she signed out AGAINST MEDICAL ADVICE. Cause of syncope unclear, however is suspicious she may have postural hypotension as she is reporting that the syncopal events or exacerbated with change of position. EKG sinus tachycardia rate of 104, per my review no ST-T wave changes concerning for ischemia. Troponins less than 0.033. MRI of brain and CT of head obtained and found to be negative for acute intracranial abnormality. Proceed with further evaluation Echocardiogram 04/09/18 with LVEF 55%, mild LV diastolic dysfunction, normal RV structure and function, mild-moderate TR, no PHTN, obtain orthostatic vitals twice a day, bilateral carotid Doppler ultrasounds preliminary with no occlusive plaque noted and appear to be within normal limits. Obtain EEG to evaluate for seizure as cause of syncope. Neurology has signed off on pt. Falls/safety precautions and up with assist. (3) Hyponatremia Current Visit: Yes Status: Acute Assessment and Plan: Serum sodium 132 today. Currently asymptomatic, continue to monitor. Re-check sodium in a.m. labs. (4) Elevated d-dimer Current Visit: Yes Status: Acute Assessment and Plan: Etiology unclear, CTA negative for PE, no extremity swelling or pain. Will order Dopplers of LEs. (5) Diabetes mellitus with neuropathy Current Visit: Yes Status: Chronic Assessment and Plan: History of diabetes, continue current sliding scale insulin coverage. Adjust as necessary. Hypoglycemic protocol ordered d/t BG of 75 during pseudoseizure. (6) HTN (hypertension) Current Visit: Yes Status: Chronic Assessment and Plan: History of hypertension. BP controlled at this time. Continue lisinopril, continue monitor. Adjust medications when necessary or at adjunct therapy when necessary. (7) Hyperlipidemia Current Visit: Yes Status: Chronic Assessment and Plan: Continue Zocor. DVT Prophylaxis: Heparin 5,000 units SQ Q12HR. - Time Spent with Patient Total time spent is greater than 50% in coordination of care (as documented) at patient's floor/unit and/or counseling patient: less than 15 minutes Plan of Care Discussed with: patient Internal Medicine: Result - Labs CBC & Chem 7: 05/02/18 03:55 05/02/18 03:40 Labs: Short CBC 05/02/18 Range/Units 03:55 WBC 6.9 (4.3-11.1) K/mcL Hgb 8.1 L (11.5-15.4) g/dL Hct 24.7 L (35.3-44.9) % Plt Count 191 (140-400) K/mcL Neutrophils # 4.1 (1.6-8.9) K/mcL BMP 05/02/18 03:40 Sodium 132 L Potassium 4.3 Chloride 100 Carbon Dioxide 24 BUN 15 Creatinine 1.01 Glucose 162 H Calcium 8.6 - ABG Interpretation ABG results: PT/INR, D-dimer D-Dimer 1392 ng/mLFEU (0-500) H 04/30/18 14:42 Consult Discharge Plan - Plan Referrals: Aggie Gonzalez [Primary Care Provider] - (2) Syncope Qualifiers: Syncope type: unspecified Qualified Code(s): R55 - Syncope and collapse (5) Diabetes mellitus with neuropathy Qualifiers: Diabetes mellitus type: type 2 Diabetes mellitus jail insulin use: with termite helper use Qualified Code(s): E11.40 - Type 2 diabetes mellitus with diabetic neuropathy, unspecified; Z79.4 - terminal clerk (current) use of insulin (6) HTN (hypertension) Qualifiers: Hypertension type: essential hypertension Qualified Code(s): I10 - Essential (primary) hypertension (7) Hyperlipidemia Qualifiers: Hyperlipidemia type: pure hypercholesterolemia Qualified Code(s): E78.00 - Pure hypercholesterolemia, unspecified; E78.0 - Pure hypercholesterolemia
[2018-05-02] MEDS: 0.9 % Sodium Chloride 1,000 ML IVC SCH (15:22)
[2018-05-02 17:04] LABS: Hematocrit 21.9 % (35.3-44.9)
[2018-05-02 17:18] LABS: Hemoglobin 7.1 g/dL (11.5-15.4)
[2018-05-02 23:09] LABS: Hematocrit 24.7 % (35.3-44.9); Hemoglobin 8.2 g/dL (11.5-15.4)
[2018-05-03] MEDS: 0.9 % Sodium Chloride 1,000 ML IVC SCH (03:12)
[2018-05-03 04:23] LABS: Basophils % 0.5 %; Eosinophils # 0.4 K/mcL (0.0-0.6); Eosinophils % 7.5 %; Hematocrit 25.7 % (35.3-44.9); Hemoglobin 8.3 g/dL (11.5-15.4); Immature Granulocytes % 0.2 % (0-4); Lymphocytes # 1.4 K/mcL (0.6-4.6); Mean Corpuscular HGB Conc 32.3 g/dL (31.6-35.5); Mean Corpuscular Hemoglobin 28.1 pg (28.0-33.3); Mean Corpuscular Volume 87.1 fL (83.0-100.0); Mean Platelet Volume 9.2 fL (9.4-12.4); Monocytes # 0.4 K/mcL (0.0-1.3); Monocytes % 6.8 %; Neutrophils # 3.7 K/mcL (1.6-8.9); Platelet Count 209 K/mcL (140-400); Red Blood Count 2.95 M/mcL (3.82-4.97); Red Cell Distribution Width 13.6 % (11.5-14.5)
[2018-05-03 04:45] LABS: BUN/Creatinine Ratio 12 (6-26); Blood Urea Nitrogen 13 mg/dL (6-20); Calcium 8.5 mg/dL (8.6-10.3); Carbon Dioxide 24 mEq/L (23-29); Chloride 102 mEq/L (98-107); Glucose 262 mg/dL (70-105); Osmolality,Calculated 287 (280-300); Potassium 4.5 mEq/L (3.5-5.1); Sodium 134 mEq/L (136-145); eGFR For Non-African Americans 56 (> 60)
[2018-05-03] MEDS: *HR* Heparin 5,000 UNIT/ML VIAL SQ SCH (05:20)
[2018-05-03] MEDS ORDERED: 0.9 % Sodium Chloride 1,000 ML IVC SCH (07:48)
[2018-05-03] MEDS: Insulin DETEMIR 100 UNIT/ML X5UNITS SQ SCH (08:08)
[2018-05-03] MEDS: ALPRAZolam 1 MG TABLET PO PRN (08:08)
[2018-05-03] MEDS: Gabapentin 400 MG CAPSULE PO SCH (08:08)
[2018-05-03] MEDS: traMADol 50 MG TABLET PO PRN (08:09)
[2018-05-03] MEDS: Insulin LISPRO 300 UNITS/3 ML VIAL SQ SCH ×2 (08:10→12:42)
[2018-05-03 11:45] VITALS: BP 157/80
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
--- NOTE | 2018-05-03 15:08 | Physician Discharge Referral ---
Home Health/Hosp Referral Info Transfer to: Home Health Provider in Charge Post Discharge: PCP (Continuity of care for nursing and aides.) - Diagnosis (1) Seizure Status: Acute (2) Syncope Status: Acute (3) Hyponatremia Status: Acute (4) Elevated d-dimer Status: Acute (5) Diabetes mellitus with neuropathy Status: Chronic (6) HTN (hypertension) Status: Chronic (7) Hyperlipidemia Status: Chronic - Respiratory Orders Smoking Cessation: Smoking cessation has been advised. For more information, call the [place] Tobacco Quit Line at 9-518-YPEF-NOW. - Transfer Medications Prescriptions: Paroxetine HCl [Paxil] 10 mg PO DAILY 10 Days #10 tablet Home Medications: Gabapentin [Neurontin] 800 mg PO TID 09/25/16 [History] Insulin LISPRO [HumaLOG] 0 units SQ TIDAC PRN 09/25/16 [History] Insulin Glargine [Lantus] 35 unit SQ QAM 02/20/18 [History] Lisinopril [Zestril] 10 mg PO DAILY 02/20/18 [History] Omeprazole [PriLOSEC] 20 mg PO BIDAC 03/30/18 [History] Promethazine [Phenergan] 25 mg PO Q6HR PRN 03/30/18 [History] Pravastatin Sodium [Pravachol] 10 mg PO HS 04/01/18 [History] Bethanechol [Urecholine] 25 mg PO QID 04/09/18 [History] ALPRAZolam [Xanax 1 MG Tablet] 1 mg PO TID PRN 04/30/18 [History] Paroxetine HCl [Paxil] 10 mg PO DAILY 10 Days #10 tablet 05/03/18 [Rx] Allergies/Adverse Reactions: 3 Allergy/AdvReac Type Severity Reaction Status Date / Time butorphanol [From Stadol] Allergy Difficulty Verified 03/30/18 20:55 Breathing diflunisal [From Dolobid] Allergy Itching Verified 03/30/18 20:55 nalbuphine [From Nubain] Allergy Difficulty Verified 03/30/18 20:55 Breathing Sulfa (Sulfonamide Allergy Rash Verified 03/30/18 20:55 Antibiotics) Certification: Further, I certify that my clinical findings support that this patient is homebound (i.e. absences from home require considerable and taxing effort and are for medical reasons or mandaen services or infrequently or short duration when for other reasons) because: Homebound Reason: Leaving home requires considerable and taxing effort due to condition Attestation: My signature below is to certify that this patient is under my care and that I, or nurse practitioner, or a physician's assistant professor of chemistry working with me, has a face-to -face encounter with this patient.
== END 2018-05-03 15:24 | disposition home or self-care (01) | DRG 756 ==
LOC: 3BNU 14:01 → EMEROO 14:01 → 3BNU 18:49
PROVIDERS: ADMIT Internal Medicine; ATTEND Internal Medicine